=== PATIENT | female | born 1970 | race Caucasian/White ===

== ENCOUNTER 2019-09-18 17:35 | Inpatient (IN) | payer BC ==
[~2019-09-18] VITALS: Ht 167.6 cm; Wt 93.9 kg
--- NOTE | 2019-09-18 17:35 | NUR ---
CPR ONGOING, 1ST EPI GIVEN.
--- NOTE | 2019-09-18 17:35 | NUR ---
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
--- NOTE | 2019-09-18 17:37 | NUR ---
RETURN OF SPONTANEOUS CIRCULATION.
[2019-09-18] MEDS ORDERED: CALCIUM CHLORIDE 1,000 MG/10 ML DISP.SYRIN IV ONE (17:38)
[2019-09-18] MEDS ORDERED: SODIUM BICARBONATE SYR 50 MEQ/50 ML DISP.SYRIN IV ONE (17:38)
[2019-09-18] MEDS ORDERED: ATROPINE SULFATE INJ 1 MG/ML VIAL IV ONE (17:38)
[2019-09-18] MEDS ORDERED: ATROPINE SULFATE 1 MG/10 ML DISP.SYRIN IV ONE (17:38)
[2019-09-18] MEDS ORDERED: EPINEPHRINE (1:10,000) SYRINGE 1 MG/10 ML DISP.SYRIN IVP ONE ×2 (17:38)
--- NOTE | 2019-09-18 17:38 | NUR ---
ET TUBE INSERTED, SIZE 7.5 25 AT THE LIP.
--- NOTE | 2019-09-18 17:39 | NUR ---
CODED, 3RD EPI GIVEN, ONGOING CPR.
--- NOTE | 2019-09-18 17:41 | NUR ---
3RD EPI GIVEN, ONGOING CPR.
--- NOTE | 2019-09-18 17:43 | NUR ---
4TH EPI GIVEN, ONGOING CPR.
--- NOTE | 2019-09-18 17:45 | NUR ---
RETURN OF SPONTANEOUS CIRCULATION.
--- NOTE | 2019-09-18 17:50 | NUR ---
CLINICAL PRACTITIONER AT BEDSIDE FOR XRAY, ET TUBE ADJUSTED TO 22 AT THE LIP.
--- NOTE | 2019-09-18 17:55 | NUR ---
PT CODED, CPR INITIATED, 5TH EPI GIVEN.
--- NOTE | 2019-09-18 17:57 | NUR ---
RETURN OF SPONTANEOUS CIRCULATION.
--- NOTE | 2019-09-18 17:58 | NUR ---
HANNAH LEFT CONTACT # [phone]
[2019-09-18 17:59] LABS: BASOPHILS # (AUTO) 0.1 /CMM (0.0-0.2); HEMOGLOBIN 14.1 g/dL (11.5-14.8); LYMPHOCYTES # (AUTO) 4.8 /CMM (0.8-4.8); PLATELET COUNT (AUTO) 176 /CMM (150-450); RED BLOOD CELL COUNT(AUTO) 4.19 MIL/uL (4.0-5.2); WHITE BLOOD COUNT (AUTO) 8.4 K/uL (4.3-11.0)
[2019-09-18] MEDS ORDERED: NOREPINEPHRINE 8 MG in IV D5W 500 ML IV PRN (18:00)
[2019-09-18] MEDS ORDERED: IV NS 0.9% 1,000 ML BAG IV ONE (18:00)
[2019-09-18 18:02] LABS: BASOPHILS % (AUTO) 0.7 % (0.0-2.0); EOSINOPHILS % (AUTO) 2.9 % (0.0-6.0); HEMATOCRIT 42 % (33-45); LYMPHOCYTES % (AUTO) 57.3 % (20.0-44.0); MEAN CORPUSCULAR HGB CONC 33 g/dl (31.0-36.0); MEAN CORPUSCULAR VOLUME 101 fL (82-100); MONOCYTES # (AUTO) 0.6 /CMM (0.1-1.30); MONOCYTES % (AUTO) 7.4 % (2.0-12.0); NEUTROPHILS # (AUTO) 2.7 /CMM (1.8-8.9); NEUTROPHILS % (AUTO) 31.7 % (43.0-81.0)
--- NOTE | 2019-09-18 18:04 | NUR ---
CODED, CPR INITIATED, 6TH EPI GIVEN.
--- NOTE | 2019-09-18 18:08 | NUR ---
RETURN OF SPONTANEOUS CIRCULATION. BICARB 50MEQ AND CALCIUM 1AMP GIVEN.
--- NOTE | 2019-09-18 18:10 | NUR ---
EPI DRIP STARTED, TITRATE TO EFFECT.
--- NOTE | 2019-09-18 18:16 | NUR ---
PT CODED, CPR INITIATED, 7TH EPI GIVEN.
--- NOTE | 2019-09-18 18:18 | NUR ---
RETURN OF SPONTANEOUS CIRCULATION.
--- NOTE | 2019-09-18 18:19 | NUR ---
PT CODED, CPR INITIATED.
--- NOTE | 2019-09-18 18:20 | NUR ---
8TH EPI GIVEN.
--- NOTE | 2019-09-18 18:22 | NUR ---
RETURN OF SPONTANEOUS CIRCULATION.
[2019-09-18 18:28] LABS: CALCIUM, SERUM 8.7 mg/dL (8.5-10.1); CARBON DIOXIDE 17 mmol/L (21-32); CHLORIDE 109 mmol/L (98-107); CREATININE 1.2 mg/dL (0.6-1.3); GLUCOSE 166 mg/dL (74-106); POTASSIUM 3.7 mmol/L (3.5-5.1); SODIUM SERUM 147 mmol/L (136-145); UREA NITROGEN, BLOOD 9 mg/dL (7-18)
[2019-09-18] MEDS ORDERED: EPINEPHRINE (1:1000) 1 MG in IV D5W 250 ML IV PRN ×4 (18:30)
[2019-09-18 18:33] LABS: ALANINE AMINOTRANSFERASE 266 U/L (12-78); ALBUMIN 2.9 g/dL (3.4-5.0); ALKALINE PHOSPHATASE 46 U/L (46-116); ASPARTATE AMINOTRANSFERASE 259 U/L (15-37); BILIRUBIN,DIRECT 0.1 mg/dL (0.0-0.2); BILIRUBIN,TOTAL 0.4 mg/dL (0.2-1.0)
--- NOTE | 2019-09-18 18:33 | NUR ---
PT CODED, INITIATED CPR, 9TH EPI GIVEN.
[2019-09-18 18:34] LABS: ACETAMINOPHEN 0 ug/ml (10-30); ALCOHOL, BLOOD < 3 mg/dL (0-0); SALICYLATE 1.6 mg/dL (2.8-20.0)
[2019-09-18 18:35] LABS: EOSINOPHILS % (MANUAL) 3 % (0-4); LYMPHOCYTES % (MANUAL) 53 % (16-48); MONOCYTES % (MANUAL) 5 % (0-11.0); NEUTROPHILS % (MANUAL) 32 (42-76); REACTIVE LYMPHOCYTES 7 % (0-0)
--- NOTE | 2019-09-18 18:35 | NUR ---
50MEG OF BICARB GIVEN.
--- NOTE | 2019-09-18 18:36 | NUR ---
RETURN OF SPONTANEOUS CIRCULATION.
--- NOTE | 2019-09-18 18:39 | NUR ---
RESUME CPR, 2ND EPI GIVEN.
--- NOTE | 2019-09-18 18:42 | NUR ---
KEVON BERNAL () - TEL: - CELL PHONE
[2019-09-18] MEDS ORDERED: MORPHINE SULFATE INJ 4 MG/ML DISP.SYRIN ONE (18:47)
--- NOTE | 2019-09-18 18:47 | NUR ---
MORPHINE 4MG IVP GIVEN ORDERED BY
[2019-09-18] MEDS ORDERED: ETOMIDATE 2 MG/ML VIAL ONE ×2 (18:50→19:16)
--- NOTE | 2019-09-18 18:51 | NUR ---
ETOMIDATE 20MG IVP GIVEN ORDERED BY .
--- NOTE | 2019-09-18 18:52 | NUR ---
PT CODED, CPR INITIATED, 10TH EPI GIVEN
--- NOTE | 2019-09-18 18:55 | NUR ---
RETURN OF SPONTANEOUS CIRCULATION.
[2019-09-18] MEDS ORDERED: ETOMIDATE 2 MG/ML VIAL IV ONE (19:00)
[2019-09-18] MEDS ORDERED: MORPHINE SULFATE INJ 2 MG/ML DISP.SYRIN IV ONE (19:00)
--- NOTE | 2019-09-18 19:00 | NUR ---
NO URINE OUTPUT, MD AWARE
--- NOTE | 2019-09-18 19:00 | NUR ---
2ND EPI DRIP STARTED, TITRATE TO EFFECT.
--- NOTE | 2019-09-18 19:03 | NUR ---
LEVOPHED STARTED TITRATE TO EFFECT.
--- NOTE | 2019-09-18 19:10 | NUR ---
PT WHEELED TO CT SCAN VIA ACLS PROTOCOL.
--- NOTE | 2019-09-18 19:15 | NUR ---
ASSUMED CARE FOR PT AT THIS TIME
[2019-09-18] MEDS ORDERED: IOHEXOL-350 100 ML VIAL IV ONE (19:18)
--- NOTE | 2019-09-18 19:20 | NUR ---
PER VERBAL MD ORDER, ADMINISTERED 10MG ETOMIDATE IV X1 NOW
[2019-09-18] MEDS ORDERED: Sodium Bicarbonate 150 MEQ in IV NS 0.9% 1,000 ML IV PRN (19:30)
[2019-09-18] MEDS ORDERED: Sodium Bicarbonate 150 MEQ in IV D5W 1,000 ML IV PRN (19:30)
--- NOTE | 2019-09-18 19:40 | NUR ---
PT RETURNED FROM CT
--- NOTE | 2019-09-18 19:41 | NUR ---
CALLED [facility], AWARE SCANS NEED TO BE READ STAT. TO BE READ NEXT.
[2019-09-18 19:45] LABS: ABG BASE EXCESS -22.2 mmol/L; ABG PCO2 94.2 mmHg (35.0-45.0); ABG PH 6.778 (7.350-7.450); ABG PO2 27.7 mmHg (75.0-100.0); COHb 0.3 % (0.5-1.5); MetHb 1.5 % (0.0-1.5); O2Hb 21.6 % (94.0-97.0); PEEP,BG 5 cm H2O; SITE, ABG LEFT ARM; VT, ABG 500 mL
--- NOTE | 2019-09-18 19:46 | NUR ---
RADIOLOGIST SPEAKING TO ER
--- NOTE | 2019-09-18 19:55 | NUR ---
CALLED DR RO, VASCULAR SURGERY. CELLAR PUMPER SPOKE TO ER
[2019-09-18] MEDS ORDERED: ALTEPLASE 100 MG/VIAL VIAL IV ONE (20:00)
[2019-09-18] MEDS ORDERED: ALTEPLASE 100 MG in WATER FOR INJECTION,STERILE 100 ML IV ONE ×4 (20:00)
--- NOTE | 2019-09-18 20:10 | NUR ---
NOTED BLOOD IN ET TUBE, DR. BRISCOE AWARE
--- NOTE | 2019-09-18 20:20 | NUR ---
CALLED [facility].MANUFACTURING CHIEF ENGINEER WAS PAGED
--- NOTE | 2019-09-18 20:21 | NUR ---
ICU 259
[2019-09-18] MEDS: EPINEPHRINE (1:1000) 2 MG in IV D5W 250 ML IV PRN ×2 (20:28→22:56)
--- NOTE | 2019-09-18 20:41 | NUR ---
NOTED HYPOTENSION. ER MD AWARE. PER VERBAL MD ORDER, WILL CONTINUE EPI DRIP 30MCG/MIN
--- NOTE | 2019-09-18 21:13 | NUR ---
[facility] - 09/18/19 at 2205 by MELISSA GAVE REPORT TO GABI MORA KASH
--- NOTE | 2019-09-18 21:13 | NUR ---
GAVE REPORT TO GABI SUÁREZ FOR KASH
[2019-09-18] MEDS ORDERED: FENTANYL PF 100MCG/2ML AMPUL ONE (21:22)
[2019-09-18] MEDS ORDERED: FENTANYL PF 100MCG/2ML AMPUL IV PRN (21:30)
[2019-09-18 22:00] VITALS: BP 88/52
[2019-09-18] MEDS ORDERED: ACETAMINOPHEN 325 MG TABLET PO PRN (22:00)
[2019-09-18] MEDS ORDERED: MAGNESIUM HYDROXIDE 30 ML UDC PO PRN (22:00)
[2019-09-18] MEDS ORDERED: ZOLPIDEM TARTRATE 5 MG TABLET PO PRN (22:00)
[2019-09-18] MEDS ORDERED: Z GUARD REMEDY 2 OZ OINT TP PRN (22:00)
[2019-09-18] MEDS ORDERED: ONDANSETRON HCL/PF 4 MG/2 ML VIAL IVP PRN (22:00)
[2019-09-18] MEDS ORDERED: HEPARIN INFUSION/D5W 500 ML IV PRN (22:00)
--- NOTE | 2019-09-18 22:00 | NUR ---
RT NOTE PT TRANSFERRED TO ICU VIA AMBU BAG @ 100%. SX DONE PRIOR, MODERATE THIN BLOODY SECRETIONS NOTED. PT CONNECTED TO VENTILATOR. BILATERAL CHEST RISE NOTED. WILL MONITOR.
--- NOTE | 2019-09-18 22:01 | NUR ---
PT TRANSFERRED TO ICU VIA GURNEY PER ACLS PROTOCOL.
[2019-09-18] MEDS ORDERED: EPINEPHRINE (1:1000) 1 MG/ML AMPUL ONE ×2 (22:20→23:59)
[2019-09-18] MEDS ORDERED: PHENYLEPHRINE 80 MG in IV D5W 250 ML IV PRN (23:00)
[2019-09-18] MEDS ORDERED: PROPOFOL 100 ML IV PRN ×2 (23:00→23:30)
--- NOTE | 2019-09-18 23:00 | NUR ---
SOUS CHEF. BLOOD PRESSURE 67/45 FIDEL STARTED, LEVOPHED MAX OUT. WILL CONTINUE TO MONITOR VITALS.
--- NOTE | 2019-09-18 23:00 | NUR ---
MANAGER INDUSTRIAL. ADMISSION. RECEIVED THE PT FROM ER [facility]. ORALLY INTUBATED, IV LEVOPHED , EPI DRIP, BICARB DRIP RUNNING. ETT 7.5,LIP 23CM,AC 16,TV 500, FIO2 1000, PEEP 5, SAT 95%. ASSESSMENT RN SHOWING S TACH. FC PATENT. LT FEMORAL CENTRAL LINE INTACT, RT AND LT HAND 20G AND 18G , MROAIMA ELBOW AND OCCIPITAL LACERATION BLEEDING ALMOND BLANCHER OPERATOR SREEDHAR 3 JESSIE PLACED, PICTURE TAKEN. PLACED IN THE CHART. FC PATENT NO URINE OUT PUT, BLEEDING FROM ETT TUBE. CBC AND PTT SEND, WAITING FOR RESULT.
[2019-09-18] MEDS ORDERED: PROPOFOL 100 ML ONE (23:07)
[2019-09-18] MEDS ORDERED: PHENYLEPHRINE 10 MG/ML VIAL ONE (23:10)
[2019-09-18] MEDS ORDERED: FENTANYL CITRATE IV 1,250 MCG in IV NS 0.9% 225 ML IV PRN (23:30)
[2019-09-18] MEDS ORDERED: [UNRECOGNIZED DRUG - REMARK] IV PRN (23:45)
[2019-09-18] MEDS ORDERED: HEPARIN INFUSION/D5W 500 ML IV ONE (23:45)
[2019-09-18 23:48] LABS: BASOPHILS # (AUTO) 0.1 /CMM (0.0-0.2); BASOPHILS % (AUTO) 0.4 % (0.0-2.0); EOSINOPHILS % (AUTO) 1.5 % (0.0-6.0); HEMATOCRIT 39 % (33-45); HEMOGLOBIN 12.5 g/dL (11.5-14.8); LYMPHOCYTES # (AUTO) 5.3 /CMM (0.8-4.8); MEAN CORPUSCULAR HGB CONC 32 g/dl (31.0-36.0); MEAN CORPUSCULAR VOLUME 102 fL (82-100); MONOCYTES # (AUTO) 0.4 /CMM (0.1-1.30); MONOCYTES % (AUTO) 1.7 % (2.0-12.0); NEUTROPHILS # (AUTO) 15.9 /CMM (1.8-8.9); NEUTROPHILS % (AUTO) 72.4 % (43.0-81.0); WHITE BLOOD COUNT (AUTO) 22.1 K/uL (4.3-11.0)
[2019-09-18] MEDS ORDERED: VASOPRESSIN INJ 20 UNIT/ML VIAL ONE (23:57)
--- NOTE | 2019-09-18 23:57 | NUR ---
PT RCVD ORALLY INTUBATED WITH 7.5 ETT SECURED @ 23 CM L[facility] WITH THE SETTINGS OF AC 16, 500, PEEP 5 AND FIO2 100%. SUCTIONED LARGE AMOUNT OF BLOODY SECRETIONS. VENT PLUGGED INTO RED OUTLET. VENT ALARMS SET AND AUDIBLE. AMBU BAG @ BEDSIDE. WILL CONTINUE TO MONITOR.
[2019-09-19] VITALS: BP 77/42
[2019-09-19] MEDS ORDERED: VASOPRESSIN INJ 50 UNIT in IV D5W 497.5 ML IV PRN ×2
--- NOTE | 2019-09-19 | NUR ---
CANCER SPEC. NO URINE OUT PUT. MADE AWARE, STILL BLEEDING FROM ET TUBE, BLOOD PRESSURE 77/40. VASO SHOCKABLE DOSE STARTED. WILL CONTINUE TO MONITOR. SREEDHAR AT BED SIDE, WAITING FOR PTT RESULT.
[2019-09-19 00:18] LABS: PLATELET COUNT (AUTO) 160 /CMM (150-450)
[2019-09-19] MEDS: EPINEPHRINE (1:1000) 2 MG in IV D5W 250 ML IV PRN (00:35)
[2019-09-19 00:37] VITALS: BP 81/44
[2019-09-19] MEDS ORDERED: FENTANYL PF 100MCG/2ML AMPUL ONE ×2 (00:55→01:05)
[2019-09-19] MEDS ORDERED: IV NS 0.9% 250 ML IV ONE (01:00)
--- NOTE | 2019-09-19 01:00 | NUR ---
REFLECTOR DRILLER AND DEBURRER. AROUND 0100 ALL PRESSURES MAX OUT. BLOOD PRESSURE IS LOW. U/S TEACH AT BED SIDE, WILL CONTINUE TO MONITOR.
--- NOTE | 2019-09-19 01:17 | NUR ---
OPERATIONS INTERN, ASSOCIATE PROFESSOR OF THEATRE SHOWING BLAINE CARDIA FOLLOWED BY A SYSTOLE ACTIVATED AARON WALSH, ER AND SUKUMAR. CPR STARED, ACLS PROTOCOL INITIATED, SEE CODE BLUE SHEET. PRONOUNCED BY ER MD BERNARDO . NOTIFIED 1 LEGACY NAME IS NEYMAR NO IS [phone] .
[2019-09-19] MEDS ORDERED: CALCIUM CHLORIDE 1,000 MG/10 ML DISP.SYRIN IV ONE (01:24)
[2019-09-19] MEDS ORDERED: EPINEPHRINE (1:10,000) SYRINGE 1 MG/10 ML DISP.SYRIN IVP ONE (01:24)
[2019-09-19] MEDS ORDERED: SODIUM BICARBONATE SYR 50 MEQ/50 ML DISP.SYRIN IV ONE (01:24)
--- NOTE | 2019-09-19 02:00 | NUR ---
BANK APPRAISER. NOTIFIED CORNER , NAME IS OSIRIS NO IS [id number]
--- NOTE | 2019-09-19 03:00 | NUR ---
DIABETES PHYSICIAN. POST MORTEM CARE. GIVEN. ET TUBE, ALL LINES FC INTACT. SEND THE [facility].
--- NOTE | 2019-09-19 04:02 | NUR ---
ETCHER HANDRN. ELI SPOKE WITH PT .
== END 2019-09-19 01:25 | disposition expired | DRG 208 ==
LOC: ER 17:37 → ICU 20:50
PROVIDERS: ADMIT Nurse Practitioner Acute Care; ATTEND Nurse Practitioner Acute Care
PROC: 5A1935Z Respiratory Ventilation, Less than 24 Consecutive Hours (ICD-10-PCS; principal; 2019-09-18)
PROC: 5A12012 Performance of Cardiac Output, Single, Manual (ICD-10-PCS; principal; 2019-09-18)
PROC: 0BH17EZ Insertion of Endotracheal Airway into Trachea, Via Natural or Artificial Opening (ICD-10-PCS; principal; 2019-09-18)
PROC: 06HY33Z Insertion of Infusion Device into Lower Vein, Percutaneous Approach (ICD-10-PCS; principal; 2019-09-18)
PROC: B54CZZA Ultrasonography of Left Lower Extremity Veins, Guidance (ICD-10-PCS; principal; 2019-09-18)
DX: I26.99 Other pulmonary embolism without acute cor pulmonale (principal); J96.01 Acute respiratory failure with hypoxia; E87.2 Acidosis; E44.0 Moderate protein-calorie malnutrition; D62 Acute posthemorrhagic anemia; K92.2 Gastrointestinal hemorrhage, unspecified; R57.0 Cardiogenic shock; W18.30XA Fall on same level, unspecified, initial encounter; Y92.89 Other specified places as the place of occurrence of the external cause; R74.0 Nonspecific elevation of levels of transaminase and lactic acid dehydrogenase [LDH]; E88.09 Other disorders of plasma-protein metabolism, not elsewhere classified; S01.01XA Laceration without foreign body of scalp, initial encounter
CPT/HCPCS: 31720; 36415; 36600; 70450-TC; 71045-TC; 80048-TC; 80076-TC; 82803-TC; 83605-TC; 84484-TC; 85025-TC; 85730-TC; 86850-TC; 87040-TC; 87081-TC; 93307-TC; 94002-TC; C1751; G0378; G0480; J0171; J0461; J1644; J2270; J2370; J2997; J3010; J3490; J7030; J7040; J7050; J7060; Q9967